=== PATIENT | female | born 1980 | race Caucasian/White ===

== ENCOUNTER 2016-09-14 21:20 | Emergency (ER) | payer OTHER ==
[2016-09-14 21:28] VITALS: BP 130/91; PULSE 83; RESP 20; TEMP 97.2; O2SAT 99
[2016-09-14] MEDS ORDERED: OXYCODONE/APAP 5/325 TAB PO ONE (21:40)
[2016-09-14] MEDS ORDERED: IBUPROFEN 600 MG TAB PO ONE (22:00)
--- NOTE | 2016-09-14 22:08 | EDPHY ---
H & P Stated Complaint: 5' FOOSH, L elbow pain - Personal History LMP (Females 10-55): 1-7 Days Ago Current Tetanus/Diphtheria Vaccine: Yes Current Tetanus Diphtheria and Acellular Pertussis (TDAP): Yes - Medical/Surgical History Other PMH: hypothyroid, depression Time Seen by Provider: 09/14/16 22:06 HPI/ROS: CHIEF COMPLAINT: Left elbow pain HISTORY OF PRESENT ILLNESS: 36-year-old female, right-hand dominant, via private vehicle complaining of acute left elbow pain when she was indoor bouldering, fell and hyperextended her left elbow . No proximal distal pain or injury. No paresthesia. No head injury. PHYSICAL EXAM (Prior to examination, patient consented to physical exam, hands were washed and my usual and customary physical exam procedures followed) 1) GENERAL: Well-developed, well-nourished, alert and oriented. Appears to be in no acute distress. 2) HEAD: Normocephalic 3) HEENT: Pupils equal, round, reactive to light bilaterally. 4) LUNGS: Breathing comfortably. 5) MUSCULOSKELETAL: Tender to palpation radial head. No deformity. Proximally distally nontender Soft compartments. Normal coloration. 6) SKIN: intact 7) VASCULAR: pulses and cap refill present are brisk 8) NEUROLOGIC: Radial, ulnar, median nerve function intact with no deficits appreciated on exam DIFFERENTIAL DIAGNOSIS: in no particular order including but not limited to fracture, sprain, compartment syndrome (Lindy Cardona Lorenza) Constitutional: Initial Vital Signs Temperature (C) 36.2 C 09/14/16 21:25 Heart Rate 83 09/14/16 21:25 Respiratory Rate 20 09/14/16 21:25 Blood Pressure 130/91 H 09/14/16 21:25 O2 Sat (%) 99 09/14/16 21:25 O2 Delivery Mode Room Air Allergies/Adverse Reactions: No Known Allergies Allergy (Unverified 09/14/16 21:28) Home Medications: Medication Instructions Recorded Bcp 09/14/16 Synthroid 09/14/16 Wellbutrin Sr 09/14/16 oxyCODONE/APAP 5/325 [Percocet 1 tab PO Q6 #10 tab 09/14/16 5/325] Medical Decision Making - Diagnostics Imaging: Left Elbow, 3 Views, at 9:30 PM Clinical History: 36-year-old female who fell while rock climbing, complaining of elbow pain. Comparison Study: None. Findings: There is a radial head fracture which is minimally displaced and slightly depressed along its lateral aspect. There is a tiny elbow joint effusion. The olecranon is intact, and the supracondylar humerus is intact. Impression: Acute mildly displaced and depressed radial head fracture. Dictated By: Douglas Hill MD Images reviewed myself (Lindy Cardona) Procedures: Procedure: Splint An upper extremity sling was applied by ER communication electronic technician. After application of the splint I returned and re-examined the patient. The splint was adequately immobilizing the joint and distal to the splint the patient's circulation and sensation were intact. Patient shows no signs of compartment syndrome. Was given orthopedic precautions. (Lindy Cardona) ED Course/Re-evaluation: This patient was evaluatedAnd managed by the physician print shop assistant. I have reviewed the chart and agree with a plan of care. I am the secondary supervising physician. (Meaghan Santos) - Data Points Medications Given: Discontinued Medications Ibuprofen (Motrin) 600 mg PO EDNOW ONE Stop: 09/14/16 22:01 Last Admin: 09/14/16 22:03 Dose: 600 mg Oxycodone/Acetaminophen (Percocet 5/325) 2 tab PO EDNOW ONE Stop: 09/14/16 21:41 Last Admin: 09/14/16 21:45 Dose: 2 tab Oxycodone/Acetaminophen (Percocet 5/325mg Prepack#4) 1 btl TAKEHOME EDNOW ONE Stop: 09/14/16 22:27 Last Admin: 09/14/16 22:29 Dose: 1 btl Departure - Departure Disposition: Home, Routine, Self-Care Clinical Impression: Left radial head fracture Condition: Good Instructions: Elbow Fracture (ED) Additional Instructions: Return to the ER immediately if you experience discoloration, have worsening pain, numbness, tingling, or any other symptoms that concern you. If you received x-rays in the emergency department today, be advised, that ligamentous , tendon, muscular, and other non-bony injury cannot be fully ruled out. [Try to keep your affected extremity elevated above the level of your chest, and keep cold packs on the affected area, for the next 48 hours.] Referrals: Nadya Zaman MD [Medical Doctor] - 2-3 days, call for appt. Prescriptions: oxyCODONE/APAP 5/325 [Percocet 5/325] 1 tab PO Q6 #10 tab
[2016-09-14] MEDS ORDERED: OXYCODONE/APAP 5/325MG PREPACK#4 BTL TAKEHOME ONE (22:26)
== END 2016-09-14 22:20 | disposition home or self-care (01) ==
DX: S52.122A Displaced fracture of head of left radius, initial encounter for closed fracture (principal); W18.39XA Other fall on same level, initial encounter
CPT/HCPCS: A4565

== ENCOUNTER → 2016-10-12 | Outpatient (CLI) | payer OTHER | LOC: FIMAGING 14:54 | PROVIDERS: ATTEND Radiology Diagnostic Radiology | DX: S52.122D Displaced fracture of head of left radius, subsequent encounter for closed fracture with routine healing (principal) ==

== ENCOUNTER → 2018-09-15 | Outpatient (CLI) | payer OTHER | LOC: FIMAGING 09:24 | PROVIDERS: ATTEND Family Medicine | DX: N85.4 Malposition of uterus (principal); R10.2 Pelvic and perineal pain; Z97.5 Presence of (intrauterine) contraceptive device ==